=== PATIENT | male | born 1940 | race Caucasian/White ===

== ENCOUNTER 2018-08-17 00:24 | Outpatient (CLI) | payer MEDICARE | END 2018-08-17 23:59 | disposition home or self-care (01) | LOC: DIABETIC 00:24 | PROVIDERS: ATTEND Family Medicine | DX: Z71.3 Dietary counseling and surveillance (principal); E66.09 Other obesity due to excess calories; K58.9 Irritable bowel syndrome, unspecified | CPT/HCPCS: 97802 ==

== ENCOUNTER 2018-09-27 11:31 | Inpatient (IN) | payer MEDICARE, OTHER ==
[2018-09-16 15:24] LABS: CLARITY,URINE SLIGHTLY CLOUDY (Clear); COLOR,URINE YELLOW (Yellow); GLUCOSE, URINE NEGATIVE (Neg); KETONES,URINE NEGATIVE (Neg); LEUKOCYTE ESTERASE ,URINE SMALL (Neg); NITRITES, URINE POSITIVE (Neg); OCCULT BLOOD,URINE SMALL (Neg); PROTEIN,URINE 30 mg/dl (Neg); UROBILINOGEN,URINE 0.2 E.U/dL (0.2-1.0)
[2018-09-16 15:26] LABS: BASOPHILS % (AUTO) 0.5 % (0-1); EOSINOPHILS # (AUTO) 0.2 X10'3 (0-0.9); EOSINOPHILS % (AUTO) 3.6 % (0-6); LYMPHOCYTES # (AUTO) 1.6 X10'3 (1.1-4.8); MEAN CORPUSCULAR HEMOGLOBIN 33.8 PG (27.0-31.0); MEAN CORPUSCULAR HGB CONC 32.5 % (33.0-36.5); MEAN PLATELET VOLUME 8.7 FL (7.4-10.4); MONOCYTES # (AUTO) 0.4 X10'3 (0-0.9); MONOCYTES % (AUTO) 6.9 % (2-12); NEUTROPHILS # (AUTO) 4.3 X10'3 (1.8-7.7); PRE OP HEMOGLOBIN 14.6 g/dL (14.0-17.9); PRE OP PLATELET COUNT 131 X10'3 (140-440); RED BLOOD COUNT 4.33 X10'6 (4.70-6.10); RED CELL DISTRIBUTION WIDTH 14.4 % (11.5-14.5)
[2018-09-16 15:38] LABS: PRE OP INR 1.1 INR; PRE OP PROTIME 11.1 SECONDS (9.0-12.0); UA COLLECTION TYPE CLN CATCH MIDSTREAM
[2018-09-16 15:49] LABS: BACTERIA,URINE 2+ /HPF (Neg); SQUAMOUS EPITHELIAL CELL,UR FEW /LPF (FEW)
[2018-09-16 15:51] LABS: RBC,URINE 0-2 /HPF (0-2)
[2018-09-16 15:53] LABS: ALBUMIN 3.8 G/DL (3.4-5.0); ALKALINE PHOSPHATASE 59 IU/L (46-116); BLOOD UREA NITROGEN 34 MG/DL (7-18); BUN/CREATININE RATIO 25.4 (5.4-32.0); CALCIUM 9.4 MG/DL (8.5-10.1); CHLORIDE 102 MMOL/L (99-107); CREATININE 1.34 MG/DL (0.60-1.10); PRE OP ALT 20 U/L (30-65); PRE OP ANION GAP 12 (8-16); PRE OP AST 23 U/L (10-37); PRE OP BILIRUB, TOTAL 0.6 MG/DL (0.0-1.0); PRE OP GLUCOSE 105 MG/DL (70-104); PRE OP POTASSIUM 4.7 MMOL/L (3.4-5.1); PRE OP SODIUM 139 MMOL/L (135-145); TOTAL CARBON DIOXIDE 25.5 MMOL/L (24-32); TOTAL PROTEIN 7.6 G/DL (6.4-8.2); eGFR 52 ML/MIN
[~2018-09-27] VITALS: Ht 185.4 cm; Wt 105.0 kg
[2018-09-27] VITALS (19 sets, daily range): BP systolic 140–162; BP diastolic 80–107
[~2018-09-27 11:31] MED LIST: ASCO500C15 PO; CALC200T42 PO; CHOL400T14 PO; FLAX10007 PO; FURO40TA4 PO; GABA600T13 PO; GABA800T11 PO; MAGN500C16 PO; MULT1TAB74 PO; POTA20TA10 PO; WARF1TAB83 PO; acetaminophen 325mg tablet PO ONE; cefazolin/dext.iso 2gm/100 ML IV ONE; celeCOXIB 100mg capsule PO ONE; famotidine 20mg tablet PO ONE; oxyCODONE SR 10mg (sust. release) tab PO ONE; ringers solution, lacted 1,000 ML IV SCH; tranexamic acid inj. 1,000 MG in normal saline 100 ML IV ONE
[2018-09-27] MEDS ORDERED: LIDOcaine 1% (10mg/ml) 2ml vial ONE (11:51)
[2018-09-27] MEDS ORDERED: bacitracin inj 150,000 UNIT in sodium chloride irrig. sol 3,000 ML IR ONE (12:00)
[2018-09-27] MEDS ORDERED: GABA800T11 PO (12:25)
[2018-09-27] MEDS ORDERED: ROPIVAcaine 0.5% (5mg/ml) 30ml vial ONE ×2 (12:29→13:13)
[2018-09-27 12:34] LABS: PRE OP INR 1.3 INR; PRE OP PROTIME 12.6 SECONDS (9.0-12.0)
[2018-09-27] MEDS ORDERED: ePHEDrine 50MG/ML INJ. ONE (12:39)
[2018-09-27] MEDS ORDERED: sevoflurane 250ml liquid IH ONE (12:39)
[2018-09-27] MEDS ORDERED: ondansetron/PF 4mg/2ml inj ONE (12:39)
[2018-09-27] MEDS ORDERED: LIDOcaine 2% (20mg/ml) 5ml vial ONE (12:47)
[2018-09-27] MEDS ORDERED: propofol inj 20 ML IV ONE (12:47)
[2018-09-27] MEDS ORDERED: fentaNYL /PF 50mcg/ml 5ml ampule ONE (12:47)
--- NOTE | 2018-09-27 12:59 | NUR ---
BETADINE PREP ORDERED Addendum: 09/27/18 at 1308 by Kristen Littlejohn RN Amended: Links added.
[2018-09-27] MEDS ORDERED: tranexamic acid inj. 1,500 MG in normal saline 100ml IV soln 100 ML IV ONE (13:00)
[2018-09-27] MEDS ORDERED: dexamethasone sod phosphate 4mg/ml inj. ONE (13:14)
[2018-09-27] MEDS ORDERED: ringers solution, lacted 1,000 ML IV SCH (13:56)
[2018-09-27] MEDS ORDERED: ondansetron/PF 4mg/2ml inj IV PRN ×2 (14:00→15:10)
[2018-09-27] MEDS ORDERED: HYDROmorphone inj. 0.5 MG/0.5 ML DISP.SYRIN IV PRN ×2 (14:00)
[2018-09-27] MEDS ORDERED: morphine 4 MG/ML inj SYRINge IV PRN (14:00)
[2018-09-27] MEDS ORDERED: ceFAZolin 1000mg inj ONE (14:20)
[2018-09-27] MEDS ORDERED: acetaminophen 325mg tablet PO PRN (15:10)
[2018-09-27] MEDS ORDERED: magnesium hydroxide 30ml (MOM) UD suspension PO PRN (15:10)
[2018-09-27] MEDS ORDERED: bisacodyl 10mg suppository rectal RC PRN (15:10)
[2018-09-27] MEDS ORDERED: HYDROmorphone 1 mg/ml syringe IV PRN (15:10)
[2018-09-27] MEDS ORDERED: diphenhydrAMINE 25mg capsule PO PRN ×2 (15:10)
[2018-09-27] MEDS ORDERED: morphine 10mg/ml inj. ONE (15:43)
--- NOTE | 2018-09-27 15:45 | NUR ---
Received from OR via bed, accompanied by Anesthesiologist. Report received. Initial physical assessment done and recorded.
--- NOTE | 2018-09-27 16:45 | NUR ---
Discharge criteria met, report to receiving floor. Transferred to room in stable condition.
[2018-09-27] MEDS ORDERED: warfarin 10mg tablet PO ONE (18:00)
--- NOTE | 2018-09-27 18:28 | NUR ---
REPORT REC'D FROM JEANNE CHARLES.
[2018-09-27] MEDS: ceFAZolin 1GM/D5W- ADD-VANTAGE 50 ML IV SCH ×2 (19:09→23:48)
[2018-09-27] MEDS: potassium cl 20mEq in 1/2 NS 1,000 ML IV SCH ×2 (19:09→23:10)
[2018-09-27] MEDS: potassium Cl 20 mEq SR tablet PO SCH ×2 (19:10→21:15)
[2018-09-27] MEDS: oxyCODONE/APAP 10/325mg tablet PO PRN ×2 (19:11→23:51)
[2018-09-27] MEDS: sennosides 8.6mg tablet PO SCH (21:15)
[2018-09-27] MEDS: ascorbic acid 500mg tablet PO SCH (21:15)
[2018-09-28 03:14] VITALS: BP 99/58
[2018-09-28] MEDS: oxyCODONE/APAP 10/325mg tablet PO PRN ×5 (05:17→23:13)
--- NOTE | 2018-09-28 06:27 | NUR ---
REPORT GIVEN TO JEANNE HUITRON.
--- NOTE | 2018-09-28 06:34 | NUR ---
Received report from Anne ANGEL
[2018-09-28 06:37] LABS: BASOPHILS % (AUTO) 0 % (0-1); EOSINOPHILS # (AUTO) 0.1 X10'3 (0-0.9); EOSINOPHILS % (AUTO) 0.7 % (0-6); HEMATOCRIT 33.2 % (42.0-52.0); HEMOGLOBIN 11.2 g/dl (14.0-17.9); LYMPHOCYTES # (AUTO) 0.6 X10'3 (1.1-4.8); LYMPHOCYTES % (AUTO) 6.6 % (21-51); MEAN CORPUSCULAR HEMOGLOBIN 34.8 PG (27.0-31.0); MEAN CORPUSCULAR HGB CONC 33.7 % (33.0-36.5); MEAN CORPUSCULAR VOLUME 103.2 FL (78-98); MEAN PLATELET VOLUME 8.7 FL (7.4-10.4); MONOCYTES # (AUTO) 0.4 X10'3 (0-0.9); MONOCYTES % (AUTO) 4.7 % (2-12); NEUTROPHILS # (AUTO) 7.8 X10'3 (1.8-7.7); PLATELET COUNT 98 X10'3 (140-440); RED BLOOD COUNT 3.22 X10'6 (4.70-6.10); RED CELL DISTRIBUTION WIDTH 14.7 % (11.5-14.5); WHITE BLOOD COUNT 8.9 X10'3 (4.5-11.0)
[2018-09-28 06:44] LABS: INR 1.2 INR
[2018-09-28 06:55] LABS: ALANINE AMINOTRANSFERASE 17 U/L (12-78); ALBUMIN 2.9 G/DL (3.4-5.0); ALKALINE PHOSPHATASE 44 IU/L (46-116); ANION GAP 9 (8-16); ASPARTATE AMINO TRANSFERASE 21 U/L (10-37); BILIRUBIN,TOTAL 0.6 MG/DL (0.1-1.0); BLOOD UREA NITROGEN 20 MG/DL (7-18); BUN/CREATININE RATIO 15.3 (5.4-32.0); CALCIUM 7.5 MG/DL (8.5-10.1); CHLORIDE 104 MMOL/L (99-107); CREATININE 1.31 MG/DL (0.60-1.10); GLUCOSE 153 MG/DL (70-104); POTASSIUM 5.1 MMOL/L (3.5-5.1); SODIUM 137 MMOL/L (135-145); TOTAL CARBON DIOXIDE 23.7 MMOL/L (24-32); TOTAL PROTEIN 5.9 G/DL (6.4-8.2); eGFR 53 ML/MIN
[2018-09-28] MEDS: potassium cl 20mEq in 1/2 NS 1,000 ML IV SCH ×3 (07:10→20:54)
[2018-09-28] MEDS: potassium Cl 20 mEq SR tablet PO SCH ×4 (07:43→19:56)
[2018-09-28] MEDS: ascorbic acid 500mg tablet PO SCH ×2 (07:43→19:56)
[2018-09-28] MEDS: multivitamins, therapeutics tablet PO SCH (07:43)
[2018-09-28] MEDS: furosemide 20MG tablet PO SCH (07:45)
[2018-09-28 08:52] VITALS: BP 106/67
[2018-09-28] MEDS ORDERED: warfarin 7.5mg tablet PO ONE (10:00)
--- NOTE | 2018-09-28 11:09 | NUR ---
Joint replacement consult: Pt seen by JASKARAN for written/verbal high protein ed. RD reviewed high protein needs for wound healing, immune strength, high protein foods, and protein supplementation options. RD contact information provided in case of further questions. Pt agrees to hard boiled eggs/mohawk yogurt/v8 juice w/ breakfasts and declines additional proteins; drinks premier proteins at home. Addendum: 09/28/18 at [address] Amended: Links added.
[2018-09-28 16:50] VITALS: BP 124/64
--- NOTE | 2018-09-28 18:00 | NUR ---
Patient in room [facility] 4023. I have received report from JEANNE Field and had the opportunity to ask questions and assume patient care.
[2018-09-28] MEDS: sennosides 8.6mg tablet PO SCH (19:57)
[2018-09-28 22:00] VITALS: BP 124/68
[2018-09-29] MEDS: oxyCODONE/APAP 10/325mg tablet PO PRN ×5 (02:58→19:39)
--- NOTE | 2018-09-29 05:41 | NUR ---
Mejia and Hemovac d/c
[2018-09-29 05:56] LABS: BASOPHILS % (AUTO) 0.3 % (0-1); EOSINOPHILS # (AUTO) 0.1 X10'3 (0-0.9); HEMATOCRIT 29.5 % (42.0-52.0); HEMOGLOBIN 9.9 g/dl (14.0-17.9); LYMPHOCYTES # (AUTO) 1.5 X10'3 (1.1-4.8); LYMPHOCYTES % (AUTO) 24.1 % (21-51); MEAN CORPUSCULAR HEMOGLOBIN 34.7 PG (27.0-31.0); MEAN CORPUSCULAR HGB CONC 33.4 % (33.0-36.5); MEAN CORPUSCULAR VOLUME 103.7 FL (78-98); MEAN PLATELET VOLUME 8.8 FL (7.4-10.4); MONOCYTES # (AUTO) 0.5 X10'3 (0-0.9); MONOCYTES % (AUTO) 8.8 % (2-12); NEUTROPHILS % (AUTO) 64.8 % (42-75); PLATELET COUNT 81 X10'3 (140-440); RED BLOOD COUNT 2.85 X10'6 (4.70-6.10); RED CELL DISTRIBUTION WIDTH 15.1 % (11.5-14.5); WHITE BLOOD COUNT 6.2 X10'3 (4.5-11.0)
[2018-09-29 06:00] VITALS: BP 108/73
[2018-09-29 06:18] LABS: INR 1.7 INR; PROTHROMBIN TIME 16.5 SECONDS (9.0-12.0)
[2018-09-29 06:19] LABS: ALANINE AMINOTRANSFERASE 15 U/L (12-78); ALBUMIN 2.8 G/DL (3.4-5.0); ALKALINE PHOSPHATASE 40 IU/L (46-116); ANION GAP 9 (8-16); ASPARTATE AMINO TRANSFERASE 15 U/L (10-37); BILIRUBIN,TOTAL 0.6 MG/DL (0.1-1.0); BLOOD UREA NITROGEN 18 MG/DL (7-18); BUN/CREATININE RATIO 12.9 (5.4-32.0); CALCIUM 7.8 MG/DL (8.5-10.1); CHLORIDE 105 MMOL/L (99-107); GLUCOSE 105 MG/DL (70-104); POTASSIUM 4.4 MMOL/L (3.5-5.1); SODIUM 139 MMOL/L (135-145); TOTAL CARBON DIOXIDE 25.2 MMOL/L (24-32); TOTAL PROTEIN 5.6 G/DL (6.4-8.2); eGFR 49 ML/MIN
--- NOTE | 2018-09-29 06:31 | NUR ---
Problems reprioritized. Patient report given, questions answered & plan of care reviewed with JEANNE Traore.
[2018-09-29] MEDS ORDERED: normal saline 1000ml 1,000 ML IV SCH (06:40)
[2018-09-29] MEDS: multivitamins, therapeutics tablet PO SCH (07:17)
[2018-09-29] MEDS: potassium Cl 20 mEq SR tablet PO SCH ×4 (07:17→20:38)
[2018-09-29] MEDS: ascorbic acid 500mg tablet PO SCH ×2 (07:18→20:38)
[2018-09-29] MEDS: furosemide 20MG tablet PO SCH (07:18)
[2018-09-29 10:00] VITALS: BP 130/75
[2018-09-29] MEDS ORDERED: warfarin 5mg tablet PO ONE (10:00)
--- NOTE | 2018-09-29 10:00 | NUR ---
Patient refused 1000 vital signs
[2018-09-29] MEDS ORDERED: acetaminophen 325mg tablet PO PRN (15:10)
[2018-09-29 18:00] VITALS: BP 149/77
--- NOTE | 2018-09-29 18:28 | NUR ---
Problems reprioritized. Patient report given, questions answered & plan of care reviewed with Casi ANGEL.
[2018-09-29] MEDS: sennosides 8.6mg tablet PO SCH (20:39)
[2018-09-29 22:00] VITALS: BP 116/74
[2018-09-30] MEDS: oxyCODONE/APAP 10/325mg tablet PO PRN ×3 (01:06→10:34)
[2018-09-30 06:00] VITALS: BP 136/80
[2018-09-30 06:49] LABS: INR 2.5 INR; PROTHROMBIN TIME 24.2 SECONDS (9.0-12.0)
[2018-09-30 06:50] LABS: BASOPHILS % (AUTO) 0.2 % (0-1); EOSINOPHILS # (AUTO) 0.2 X10'3 (0-0.9); EOSINOPHILS % (AUTO) 3.8 % (0-6); HEMATOCRIT 31.2 % (42.0-52.0); HEMOGLOBIN 10.6 g/dl (14.0-17.9); LYMPHOCYTES # (AUTO) 1.3 X10'3 (1.1-4.8); LYMPHOCYTES % (AUTO) 22.1 % (21-51); MEAN CORPUSCULAR HEMOGLOBIN 34.9 PG (27.0-31.0); MEAN CORPUSCULAR VOLUME 102.8 FL (78-98); MEAN PLATELET VOLUME 8.8 FL (7.4-10.4); MONOCYTES # (AUTO) 0.5 X10'3 (0-0.9); MONOCYTES % (AUTO) 8.9 % (2-12); NEUTROPHILS # (AUTO) 3.7 X10'3 (1.8-7.7); PLATELET COUNT 91 X10'3 (140-440); RED BLOOD COUNT 3.03 X10'6 (4.70-6.10); RED CELL DISTRIBUTION WIDTH 14.7 % (11.5-14.5); WHITE BLOOD COUNT 5.7 X10'3 (4.5-11.0)
[2018-09-30 07:08] LABS: ALANINE AMINOTRANSFERASE 18 U/L (12-78); ALBUMIN/GLOBULIN RATIO 0.8 (1.1-1.5); ALKALINE PHOSPHATASE 74 IU/L (46-116); ANION GAP 8 (8-16); ASPARTATE AMINO TRANSFERASE 20 U/L (10-37); BILIRUBIN,TOTAL 0.6 MG/DL (0.1-1.0); BLOOD UREA NITROGEN 18 MG/DL (7-18); BUN/CREATININE RATIO 13.5 (5.4-32.0); CALCIUM 8.3 MG/DL (8.5-10.1); CHLORIDE 102 MMOL/L (99-107); CREATININE 1.33 MG/DL (0.60-1.10); GLUCOSE 100 MG/DL (70-104); SODIUM 136 MMOL/L (135-145); TOTAL CARBON DIOXIDE 25.7 MMOL/L (24-32); TOTAL PROTEIN 6.6 G/DL (6.4-8.2); eGFR 52 ML/MIN
[2018-09-30] MEDS: furosemide 20MG tablet PO SCH (07:45)
[2018-09-30] MEDS: multivitamins, therapeutics tablet PO SCH (07:45)
[2018-09-30] MEDS: ascorbic acid 500mg tablet PO SCH (07:45)
[2018-09-30] MEDS: potassium Cl 20 mEq SR tablet PO SCH (07:45)
[2018-09-30] MEDS ORDERED: warfarin 3mg tablet PO ONE (10:00)
--- NOTE | 2018-09-30 12:05 | NUR ---
Patient stable for discharge to [facility] today. Report called into [place] at [facility]. All belongings sent with patient, IV taken out. Patient transferred via [facility]
== END 2018-09-30 11:50 | DRG 470 ==
LOC: PAS IN 11:31 → EDSTATUS 13:45 → ORTHO 4S 17:00
PROVIDERS: ADMIT Specialist; ATTEND Specialist
PROC: 3E0T3BZ Introduction of Anesthetic Agent into Peripheral Nerves and Plexi, Percutaneous Approach (ICD-10-PCS; 2018-09-27)
PROC: 0SRD0J9 Replacement of Left Knee Joint with Synthetic Substitute, Cemented, Open Approach (ICD-10-PCS; principal; 2018-09-27 12:39)
DX: M17.12 Unilateral primary osteoarthritis, left knee (principal); D62 Acute posthemorrhagic anemia; I48.91 Unspecified atrial fibrillation; G62.9 Polyneuropathy, unspecified; G89.29 Other chronic pain; M54.9 Dorsalgia, unspecified; M11.262 Other chondrocalcinosis, left knee; Z96.651 Presence of right artificial knee joint; Z90.5 Acquired absence of kidney; Z98.1 Arthrodesis status; Z79.899 Other long term (current) drug therapy; Z79.01 Long term (current) use of anticoagulants; Z87.891 Personal history of nicotine dependence
CPT/HCPCS: 36415; 73560; 80053; 81001; 82948; 85025; 85610; 85730; 87070; 87077; 87088; 87186; 97110; 97116; 97161; 97530; A6449; A6455; A7000; C1713; C1758; C1776; G0378; J0690; J1100; J1170; J2001; J2270; J2405; J2704; J2795; J3010; J3490; J7030; J7120